=== PATIENT | female | born 2000 | race Caucasian/White ===

== ENCOUNTER 2022-08-09 09:31 | Outpatient (CLI) | payer BC, SELFPAY | END 2022-08-09 09:32 | disposition home or self-care (01) | PROVIDERS: Obstetrics & Gynecology; PCP Family Medicine; Visit Provider Family Medicine | DX: Z01.419 Encounter for gynecological examination (general) (routine) without abnormal findings (principal); E78.5 Hyperlipidemia, unspecified; E66.9 Obesity, unspecified; Z12.4 Encounter for screening for malignant neoplasm of cervix; F41.9 Anxiety disorder, unspecified; Z13.0 Encounter for screening for diseases of the blood and blood-forming organs and certain disorders involving the immune mechanism | CPT/HCPCS: 80048; 80061 ==

== ENCOUNTER 2024-11-12 09:46 | Outpatient (CLI) | payer BC, SELFPAY | END 2024-11-12 09:47 | disposition home or self-care (01) | PROVIDERS: PCP Family Medicine; Visit Provider Family Medicine | DX: Z00.00 Encounter for general adult medical examination without abnormal findings (principal); E78.5 Hyperlipidemia, unspecified; R53.82 Chronic fatigue, unspecified; E66.09 Other obesity due to excess calories; F41.9 Anxiety disorder, unspecified | CPT/HCPCS: 80048; 80061; 84439; 84443 ==

== ENCOUNTER 2024-12-20 20:03 | Outpatient (CLI) | payer BC, SELFPAY ==
--- NOTE | 2025-01-04 09:43 | W.PM.SLEEP ---
Sleep Study Details Details Interpreting Provider: Virgilio Date of Sleep Study: 12/20/24 Sleep Study Details: STUDY TYPE:? hospital-based attended ? BMI:? 43.9 ORDERING PROVIDER:? Virgilio INDICATION:? concerned about sleep apnea ? SLEEP SUMMARY:? 267.5 minutes total sleep time RESPIRATORY SUMMARY:? AHI 3.8 per CMS guideline, 17.5 per rule 1A Supine REM AHI is 20 nonsupine REM AHI 9.2 overall REM AHI 17.1. Supine AHI per CMS guideline is 7.9 PERIODIC LIMB MOVEMENTS OF SLEEP:? none CARDIAC:? awake 81 asleep 78 no arrhythmias noted IMPRESSION:? moderate obstructive sleep apnea with significant REM dependency and supine position dependency RECOMMENDATION: if patient is symptomatic would recommend CPAP trial.
== END 2024-12-20 20:04 | disposition home or self-care (01) ==
LOC: SLEEP 20:04
PROVIDERS: PCP Family Medicine; Visit Provider Otolaryngology
DX: G47.33 Obstructive sleep apnea (adult) (pediatric) (principal)
CPT/HCPCS: 95810; A9270